=== PATIENT | female | born 1990 | race African-American/Black ===

== ENCOUNTER 2023-09-12 00:29 | Emergency (ER) | payer MEDICAID, OTHER ==
[~2023-09-12] VITALS: Ht 162.6 cm; Wt 140.0 kg
[2023-09-12 00:32] VITALS: O2SAT 100
[2023-09-12] MEDS ORDERED: TETANUS, DIPHTHERIA, PERTUSSIS VAC/PF 0.5ML (>10YR OLD) IM ONE (00:45)
[2023-09-12] MEDS ORDERED: DOXY100C5 MT (04:56)
[2023-09-12] MEDS: ACETAMINOPHEN 325MG TABLET PO NR (06:30)
[2023-09-12] MEDS: DOXYCYCLINE HYCLATE 100MG CAPSULE PO ONE (06:30)
[2023-09-12 06:40] VITALS: BP 187/66; PULSE 91; RESP 15; TEMP 98.2
[2023-09-12] MEDS: TETANUS, DIPHTHERIA, PERTUSSIS VAC/PF 0.5ML (>10YR OLD) IM ONE (06:45)
== END 2023-09-12 06:45 | disposition home or self-care (01) ==
LOC: ER 00:38
DX: S61.011A Laceration without foreign body of right thumb without damage to nail, initial encounter (principal); S61.451A Open bite of right hand, initial encounter; J45.909 Unspecified asthma, uncomplicated; I10 Essential (primary) hypertension; Z88.0 Allergy status to penicillin; W54.0XXA Bitten by dog, initial encounter; Y93.89 Activity, other specified; Y92.89 Other specified places as the place of occurrence of the external cause; Y99.8 Other external cause status
CPT/HCPCS: 73130; 90471; 90715; 99283